=== PATIENT | female | born 1975 | race Caucasian/White ===

== ENCOUNTER 2025-03-15 12:34 | Outpatient (AMB) | payer MEDICARE, MEDICAID, SELFPAY ==
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
--- OUTSIDE RECORDS SUMMARY | 2025-03-15 13:06 | XMS_ITS | Clinical Summary ---
Author Organization [facility] Address [address] [place], [place] [id number] Phone Care Team Providers Care International Student Advisor Name Role Phone Juan Moya DO Primary Care Provider [phone] Allergies No known active allergies Medications multivitamin per tablet multivitamin tablet TAKE 1 TABLET BY MOUTH EVERY DAY Active albuterol 90 mcg/actuation inhaler albuterol sulfate HFA 90 mcg/actuation aerosol inhaler INHALE 1 PUFF BY MOUTH EVERY 4 HOURS NEEDED Active ascorbic acid, vitamin C, (VITAMIN C) 500 MG tablet Take 500 mg by mouth. Active calcium carbonate (OS-FROY) 1,250 mg (500 mg elemental) tablet Take 500 mg by mouth. 1 Active ceFAZolin (ANCEF) 10 gram injection cefazolin 10 gram solution for injection Active cefepime (MAXIPIME) 1 gram injection 2 Active cetirizine (ZYRTEC) 10 MG tablet cetirizine 10 mg tablet TK 1 T PO QD Active cholecalciferol (VITAMIN D3) 25 MCG (1,000 unit) tablet Take 1,000 Units by mouth daily. 1 Active docusate sodium (DOK) 100 MG capsule DOK 100 mg capsule TK 1 C PO QD PRN Active enoxaparin (LOVENOX) 40 mg/0.4 mL Syrg subcutaneous syringe Inject 40 mg under the skin. 2 Active fluconazole (DIFLUCAN) 200 MG tablet fluconazole 200 mg tablet TAKE 1 TABLET BY MOUTH ONCE A WEEK NEEDED Active fluticasone propionate (FLONASE) 50 mcg/actuation nasal spray fluticasone propionate 50 mcg/actuation nasal spray,suspension SHAKE LQ AND U 2 SPRAYS IEN QD Active ibuprofen (ADVIL,MOTRIN) 800 MG tablet ibuprofen 800 mg tablet TAKE 1 TABLET BY MOUTH THREE TIMES DAILY WITH FOOD OR MILK NEEDED Active magnesium oxide 250 mg (150 mg elemental) Tab 1 Active morphine (MS CONTIN) 15 MG ER tablet morphine ER 15 mg tablet,extended release 1 Active nitrofurantoin (MACROBID) 100 MG capsule TAKE 1 CAPSULE BY MOUTH TWICE DAILY FOR 5 DAYS 2 Active nortriptyline (PAMELOR) 25 MG capsule Take 25 mg by mouth nightly at bedtime. 1 Active oxyCODONE 5 MG immediate release tablet oxycodone 5 mg tablet TAKE 1 TABLET BY MOUTH TWICE DAILY FOR 20 DAYS Active pregabalin (LYRICA) 150 MG capsule Lyrica 150 mg capsule 1 Active secukinumab (COSENTYX PEN) 150 mg/mL subcutaneous pen injection Cosentyx Pen 300 mg/2 Pens (150 mg/mL) subcutaneous Active thiamine (VITAMIN B-1) 100 MG tablet Take 100 mg by mouth. Active b complex vitamins capsule Take 1 capsule by mouth daily. Active Active Problems Problem Noted Date Diagnosed Date Impaired mobility 09/07/2021 Closed fracture of shaft of tibia 02/22/2021 Edema of lower extremity 09/30/2020 S/P flap graft 09/22/2020 Open left tibial fracture 08/20/2020 Pseudomonas aeruginosa colonization 06/19/2020 Vaginal candidiasis 03/21/2020 FPC (current) use of antibiotics 0 Osteomyelitis 10/25/2019 MSSA (methicillin susceptibl e Staphylococcus aureus) infection 10/12/2019 Chronic osteomyelitis of lef t tibia and fibula with draining sinus 07/29/2019 Anxiety 06/21/2019 Chronic pain 06/21/2019 Depression 06/21/2019 Immunizations No known immunizations Social History Tobacco Use Types Packs/Day Years Used Date Smoking Tobacco: Former Smokeless Tobacco: Never Education Answer Date Recorded Are you interested in more education? Not on bruce e 12/07/2022 Are you concerned about learning? Not on file 12/07/2022 No 12/07/2022 No 12/07/2022 Digital Access Answer Date Recorded No 01/05/2023 No 01/05/2023 No 01/05/2023 Reliable internet access at home? Not on file 01/05/2023 Device with a working camera? Not on file Comments Unknown Sex and Gender Information Value Date Recorded Sex Assigned at Not on file Legal Sex Female 1:57 PM EDT Gender Identity Not on file Sexual Orientation Not on file Last Filed Vital Signs Vital Sign Reading Time Taken Comments Blood Pressure 116/78 09/07/2021 12:27 PM EST Pulse 85 09/07/2021 12:27 PM EST Temperature 37.3 C (99.1 F) 09/07/2021 12:27 PM EST Respiratory Rate 18 09/07/2021 12:27 PM EST Oxygen Saturation 99% 09/07/2021 12:27 PM EST Inhaled Oxygen Concentration - - Weight - - Height - - Body Mass Index - - Plan of Treatment Health Maintenance Due Date Last Done Comments LIPID PANEL 1973 DEPRESSION SCREENING 1985 SMOKING Hx and SMOKELESS TOBACCO SCREENING 1986 HEPATITIS C SCREENING 1991 HIV ONE-TIME SCREENING (18-6 5 YEARS) 1991 PAP SMEAR 1994 MAMMOGRAM 2013 COLOGUARD 2018 COLONOSCOPY 2018 COLORECTAL CANCER SCREENING 2018 FIT TEST 2018 FOBT 2018 SIGMOIDOSCOPY 2018 VIRTUAL COLONOSCOPY 2018 PNEUMOCOCCAL VACCINES (50+ years) (1 of 1 - PCV) 2023 ZOSTER VACCINES (1 of 2) 2023 COVID-19 VACCINE (3 - 2023-2 5 season) 2024 01/09/2021, 12/12/2020 Adult Td,Tdap Booster 10/14/2025 10/15/2015 HEPATITIS A VACCINES Aged Out No long er eligible based on patient's age to complete this topic HIB VACCINES Aged Out No longer eligi ble based on patient's age to complete this topic MENINGOCOCCAL VACCINES (ACWY) Aged Out No longer eligible based on patient's age to complete this topic MENINGOCOCCAL VACCINES (B) Aged Out N o longer eligible based on patient's age to complete this topic Medical Devices Not on file Insurance MEDICARE PART A & [place] HEALTH MEDICARE PART A & [place] & [place] [address] [place] [address] MEDICARE PART A & B [facility] MEDICARE PART A & [place] [facility] [place] [phone] Care Teams International Student Advisor Relationship Specialty Start Date End Date Juan Moya DO [address] [place] [id number] PCP - General Internal Medicine 09/07/21 Additional Source Comments The information contained in this document represents components of the legal health record. It is not the complete legal health record.[facility]
--- OUTSIDE RECORDS SUMMARY | 2025-03-15 13:06 | XMS_ITS | Patient Health Record ---
Author Organization [facility] Address [address] [place] [address] Care Team Providers Care Country Director Name Role Phone LJ SHERIFF MD Unavailable Unavailable Reason For Referral No Information Medications Medication SIG (Take, Route, Frequency, Duration) Notes Start Date End Date Status Sodium Chloride 0.9 % Inhalation Active Senna 8.6 MG Orally Active Morphine Sulfate ER 15 MG Orally Active Enoxaparin 40MG/0.4mL Active Docusate Sodium 100 MG Orally Active Polyethylene Glycol 3350 Active ceFAZolin Sodium 2Gram/100mL Active Calcium Carbonate-Vitamin D3 500MG-200Unit 1 tablet Orally BID Acti ve Tylenol 325 MG Orally Activ e Zolpidem Tartrate 10 MG Orally Active Social History Tobacco Use: Social History Observation Description Date Details (start date - stop date) Never Smoker NA - NA Tobacco Use/Smoking Question Answer Notes Are you a nonsmoker Additional Findings: Tobacco Non-User Current no n-smoker Problems Problem Type SNOMED Code ICD Code Onset Dates Problem Status W/U Status Risk Notes Problem Complex regional pain syndrome type I of left lower limb (disorder) ([id number] 01) Complex regional pain syndrome I of left lower limb (G90.522) Active confirmed Plan Of Treatment No Information Insurance Providers Payer Name Payer Address Payer Phone Subscriber Number Group Number Insured Name Patient Relationship to Insured Coverage Start Date Coverage End Date Medicare B [facility] [address] [place] [phone] [id number] ROHITLAURAOLIVE SeayIDI Self - patient is the insured [employer] Medicaid of [facility] [address] [place] [address] [id number] SRAVANTHI ELISHA Self - patient is the insured Medical (General) History Medical History History ICD Code anxiety chronic pain depression GERD arthritis Surgical History Surgery Date(Month/Year) left tibia partial excision 06/25/2019
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
== END 2025-03-15 12:49 | disposition home or self-care (01) ==
LOC: HO.HSM 12:34
PROVIDERS: PCP Internal Medicine; Visit Provider Psychiatry & Neurology Neurology
DX: G54.7 Phantom limb syndrome without pain (principal); F06.4 Anxiety disorder due to known physiological condition
CPT/HCPCS: 99214

== ENCOUNTER → 2025-03-15 12:34 | Outpatient (BNVA) | payer MEDICARE, SELFPAY | PROVIDERS: PCP Internal Medicine; Visit Provider Psychiatry & Neurology Neurology | DX: G54.7 Phantom limb syndrome without pain (principal); F06.4 Anxiety disorder due to known physiological condition | CPT/HCPCS: 99212 ==